=== PATIENT | female | born 1990 | race African-American/Black ===

== ENCOUNTER 2018-12-06 08:48 | Emergency (ER) | payer OTHER ==
[~2018-12-06] VITALS: Ht 165.1 cm; Wt 61.2 kg
[2018-12-06 08:48] VITALS: BP 131/70
== END 2018-12-06 09:05 | disposition home or self-care (01) ==
LOC: ER 08:49
DX: J06.9 Acute upper respiratory infection, unspecified (principal); F10.10 Alcohol abuse, uncomplicated; Y90.9 Presence of alcohol in blood, level not specified; Z60.2 Problems related to living alone

== ENCOUNTER 2019-03-29 17:59 | Emergency (ER) | payer OTHER ==
[~2019-03-29] VITALS: Ht 162.6 cm; Wt 63.5 kg
[2019-03-29 19:39] VITALS: BP 119/68
[2019-03-29] MEDS ORDERED: ALBUTEROL FS 2.5 MG/3 ML VIAL.NEB NEB ONE (21:00)
[2019-03-29] MEDS ORDERED: IPRATROPIUM NEB FS 0.5 MG/2.5 ML AMPUL.NEB NEB ONE (21:00)
--- NOTE | 2019-03-29 21:07 | NUR ---
RAPID INFLUENZA DONE AND SENT TO LAB.
[2019-03-29] MEDS ORDERED: IPRATROPIUM NEB FS 0.5 MG/2.5 ML AMPUL.NEB ONE (21:09)
[2019-03-29] MEDS ORDERED: ALBUTEROL FS 2.5 MG/3 ML VIAL.NEB ONE (21:09)
--- NOTE | 2019-03-29 21:09 | NUR ---
CXR DONE AT THE BEDSIDE.
--- NOTE | 2019-03-29 22:05 | NUR ---
CALLED LAB. PT IS POSITIVE FOR INFLUENZA B. Nickolas DAS PA-C NOTIFIED.
== END 2019-03-29 22:27 | disposition home or self-care (01) ==
LOC: ER 18:00
DX: J10.1 Influenza due to other identified influenza virus with other respiratory manifestations (principal); J98.01 Acute bronchospasm; Z60.2 Problems related to living alone
CPT/HCPCS: 71045-TC